=== PATIENT | male | born 1990 | race Two or more races ===

== ENCOUNTER 2018-07-07 08:18 | Emergency (ER) | payer MEDICAID ==
[~2018-07-07] VITALS: Ht 170.2 cm; Wt 65.8 kg
[2018-07-07 08:28] VITALS: BP 115/69
[2018-07-07] MEDS ORDERED: CEPHALEXIN500 MG ORAL (08:44)
[2018-07-07] MEDS ORDERED: IBUPROFEN600 MG ORAL (08:44)
--- NOTE | 2018-07-07 08:44 | Emergency Room Report ---
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 Troponin it broke off in piece went to his mesh glove into his finger. Patient was able to pull out the piece, states that there is no piece left in his finger. Complaining of pain in reduced range of motion to right pinky finger. No fevers, chills but has noted some redness to the area. Tetanus last updated 2 years ago. Allergies: Coded Allergies: No Known Allergies (Unverified , 07/07/18) Patient History Past Medical History: none Past Surgical History: none Pertinent Family History: none Social History: Denies: smoking, alcohol use, drug use Immunizations: UTD Reviewed Nursing Documentation: PMH: Agreed; PSxH: Agreed Nursing Documentation-PMH Past Medical History: No Stated History Review of Systems All Other Systems: negative except mentioned in HPI Physical Exam Vital Signs Date Time Temp Pulse Resp B/P (MAP) Pulse Ox O2 Delivery O2 Flow Rate FiO2 07/07/18 08:28 98.1 90 16 115/69 97 Room Air Sp02 EP Interpretation: reviewed, normal General Appearance: normal inspection, well appearing, no apparent distress, alert, GCS 15, non-toxic Head: normocephalic, atraumatic Eyes: bilateral eye PERRL, bilateral eye EOMI ENT: normal ENT inspection, hearing grossly normal, normal pharynx, no angioedema, normal voice, TMs + canals normal, uvula midline, moist mucus membranes Neck: normal inspection, full range of motion, supple, thyroid normal, no meningismus, no bony tend Respiratory: normal inspection, lungs clear, normal breath sounds, no rhonchi, no respiratory distress, no retraction, no accessory muscle use, no wheezing, speaking full sentences Cardiovascular #1: regular rate, rhythm, no edema, no JVD, normal capillary refill Gastrointestinal: normal inspection, normal bowel sounds, non tender, soft, no mass, no peritonitis, non-distended, no guarding, no hernia, no pulsatile mass Genitourinary: no CVA tenderness Musculoskeletal: normal inspection, back normal, normal range of motion, no calf tenderness, pelvis stable, Eben's Sign negative, other - Right hand: Dorsal aspect of proximal phalanx of right pinky finger. Small punctate wound, very tender, red, swollen. No palpable or visualized foreign body. Neurologic: normal inspection, alert, oriented x3, responsive, chiropractic physician III-XII nml as tested, motor strength/tone normal, cerebellar normal, normal gait, speech normal Psychiatric: normal inspection, judgement/insight normal, mood/affect normal, no suicidal/homicidal ideation, no delusions Skin: normal inspection, normal color, no rash Lymphatic: normal inspection, no adenopathy Medical Decision Making Diagnostic Impression: Primary Impression: Injury of upper extremity Qualified Codes: S49.91XA - Unspecified injury of right shoulder and upper arm , initial encounter Additional Impression: Cellulitis of right hand ER Course VSS, afebrile Likely cellulitis from FB No obvious FB now - patient states he removed whole piece Will Rx with Abx, NSAIDs Reccommended ICE as well Requested and given work note DC Last Vital Signs Date Time Temp Pulse Resp B/P (MAP) Pulse Ox O2 Delivery O2 Flow Rate FiO2 07/07/18 08:28 98.1 90 16 115/69 97 Room Air Status: improved Disposition: HOME, SELF-CARE Referrals: NOT CHOSEN IPA/,REFERRING (PCP) CARROLL DECKER M.D. Jul 07, 2018 08:44
[2018-07-07 08:55] VITALS: BP 124/75
== END 2018-07-07 08:45 | disposition home or self-care (01) ==
LOC: EMR 08:39
DX: S61.236A Puncture wound without foreign body of right little finger without damage to nail, initial encounter (principal); W45.8XXA Other foreign body or object entering through skin, initial encounter; Y92.89 Other specified places as the place of occurrence of the external cause; L03.113 Cellulitis of right upper limb
CPT/HCPCS: 99282